=== PATIENT | female | born 1955 ===

== ENCOUNTER 2020-12-18 09:53 | Day surgery (SDC) | payer OTHER ==
[~2020-12-18 09:53] MED LIST: ARICEPT5 MG PO; SEROQUEL25 MG PO; ZOLOFT25 MG PO
== END 2020-12-18 22:50 | disposition home or self-care (01) ==
LOC: CIR.AMB 09:53
PROVIDERS: ATTEND Colon & Rectal Surgery
DX: K64.2 Third degree hemorrhoids (principal); K64.4 Residual hemorrhoidal skin tags; Z20.822 Contact with and (suspected) exposure to COVID-19